=== PATIENT | male | born 1950 | race Caucasian/White ===

== ENCOUNTER 2016-10-20 11:10 | Emergency (ER) | payer OTHER ==
[~2016-10-20] VITALS: Wt 86.6 kg
--- NOTE | 2016-10-20 13:30 | ERD ---
ER Documentation Chief Complaint Date/Time DATE: 10/20/16 TIME: 13:27 Chief Complaint here for inguinal abscess for the past 10 days. no drainage per pt HPI This patient is a 66-year-old male with history of type 2 diabetes, hypertension , and bladder surgery presenting to the emergency department for abscess to the right groin which is been ongoing for 5 days. He states the discomfort is 6 out of 10 on a scale. The discomfort is exacerbated by walking and sitting. He denies any fever, chills, nausea, vomiting, diarrhea, shortness of breath, chest pain, or other symptoms at this time. ROS All systems reviewed and are negative except as per history of present illness. Medications Home Meds Active Scripts Sulfamethoxazole-Trimethoprim* (Bactrim* DS) 800-160 Mg Tab, 1 TAB PO BID for 7 Days, #14 TAB Prov:CHANA SMITH PA-C 10/20/16 FmHx Noncontributory for chief complaint Physical Exam Vitals Vital Signs Date Time Temp Pulse Resp B/P Pulse Ox O2 Delivery O2 Flow Rate FiO2 10/20/16 13:44 98.0 72 20 149/88 98 Room Air 10/20/16 11:13 98.0 56 20 158/83 98 Physical Exam INITIAL VITAL SIGNS: Reviewed by me. GENERAL: Alert and interactive. No acute distress. HEAD: Head is normocephalic and atraumatic. EYES: EOMI. No scleral icterus. No conjunctival injection. ENT: Moist mucosa. NECK: Supple. Full range of motion. RESPIRATORY: Normal respiratory effort. Clear breath sounds bilaterally. No wheezing, rales, or rhonchi. CV: Regular rate and rhythm. Normal S1 S2. No S3 or S4. No murmurs. ABDOMEN: Soft, non-distended, non-tender. No guarding. No rebound. No masses. EXTREMITIES: No deformity. SKIN: There is a 2 cm x 2 cm indurated abscess subcutaneously in the right groin area. There is no area of fluctuance. There is no erythema or significant tenderness to palpation. There is no lymphatic streaking or other signs of obvious cellulitis. NEUROLOGIC: Alert and oriented x 4. Speech is normal. Moves all extremities equally. No motor or sensory deficits noted. Procedures/MDM 66-year-old male presents to the emergency department for abscess to the right groin for 5 days. The patient is afebrile at 98.0F. On examination there is a 2 cm x 2 cm abscess to the right groin area with no obvious signs of surrounding cellulitis. The abscess is indurated and I do not believe it can be incised and drained at this time. The patient will be placed on Bactrim twice daily for 7 days for antimicrobial prophylaxis. I have low suspicion for abscess requiring incision and drainage, septicemia, cellulitic lymphatic streaking, or other emergencies at this time. The patient was advised to return the emergency department when the abscess becomes softer or if there are any new or worsening symptoms. The patient agrees with the plan at this time and he is stable for discharge. All questions and concerns were addressed. Departure Diagnosis: Primary Impression: Abscess Condition: Stable Additional Instructions: If the abscess becomes soft or worse return to the emergency department for drainage. Follow-up with your primary care physician within 1 week. Return to the emergency department immediately should you have any new or worsening symptoms, uncontrolled fevers, or other unexplained symptoms. Take all medications as directed. CHANA SMITH PA-C Oct 20, 2016 13:30
[2016-10-20] MEDS ORDERED: BACTDS PO (13:31)
[2016-10-20 13:44] VITALS: BP 149/88; PULSE 72; RESP 20; TEMP 98
== END 2016-10-20 14:18 | disposition home or self-care (01) ==
LOC: FTE 11:10
DX: L02.214 Cutaneous abscess of groin (principal); I10 Essential (primary) hypertension; E11.9 Type 2 diabetes mellitus without complications
CPT/HCPCS: 99283

== ENCOUNTER 2018-07-27 15:54 | Emergency (ER) | END 2018-07-27 22:54 | disposition left against medical advice (07) ==